=== PATIENT | female | born 2000 | race Caucasian/White ===

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

== ENCOUNTER 2021-07-29 18:28 | Emergency (ER) | payer BC, OTHER | END 2021-07-29 18:35 | disposition home or self-care (01) | LOC: EDUNIT# 18:28 → ER 18:32 | DX: S09.93XA Unspecified injury of face, initial encounter (principal); W21.03XA Struck by baseball, initial encounter ==